=== PATIENT | female | born 1995 | race Caucasian/White ===

== ENCOUNTER 2024-03-31 06:29 | Day surgery (SDC) | payer MEDICAID ==
[~2024-03-31] VITALS: Ht 165.1 cm; Wt 122.5 kg
[2024-03-31] MEDS ORDERED: MIDAZOLAM HCL 5 MG/5 ML VIAL ONE ×2 (07:26→08:43)
[2024-03-31] MEDS ORDERED: MEPERIDINE 100 MG INJ. 100 MG/ML VIAL ONE (07:26)
[2024-03-31] MEDS ORDERED: SIMETHICONE 40 MG/0.6 ML ML ONE (07:26)
[2024-03-31 07:52] LABS: HCG,QUAL RESULT NEGATIVE (NEGATIVE)
[2024-03-31] MEDS ORDERED: DIPHENHYDRAMINE INJ 50 MG/ML VIAL ONE (08:43)
[2024-03-31 13:56] VITALS: O2SAT 96
[2024-03-31 15:21] VITALS: BP_SYST 125; PULSE 84; RESP 16
== END 2024-03-31 09:25 | disposition home or self-care (01) ==
LOC: SDS 06:29 → SMU 06:30 → SDS 09:25
PROVIDERS: ATTEND Internal Medicine
DX: K62.5 Hemorrhage of anus and rectum (principal); R19.7 Diarrhea, unspecified; E11.9 Type 2 diabetes mellitus without complications; Z79.84 Long term (current) use of oral hypoglycemic drugs; Z79.4 Long term (current) use of insulin
CPT/HCPCS: 45378; 99152; 84703; 82948; 99153; G0378; J1200; J2250; J2175